=== PATIENT | male | born 1955 | race Caucasian/White ===

== ENCOUNTER 2019-03-29 13:07 | Emergency (ER) | payer MEDICARE, OTHER ==
[2019-03-29 15:32] LABS: #Eosinphils 0.2 thou/uL (0.0-0.7); #Lymphocytes 0.8 thou/uL (1.20-3.40); #Monocytes 0.5 thou/uL (0.11-0.59); #Neutrophils 3.7 thou/uL (1.40-6.50); %Basophils 0.5 % (0.0-1.0); %Lymphocytes 16.1 % (21.0-51.0); %Monocytes 10.1 % (0.0-10.0); %Neutrophils 70.3 % (42.0-75.0); Hemoglobin 14.5 g/dL (14.0-18.0); Mean Corpuscular HGB CONC 33.4 g/dL (32.0-36.0); Mean Corpuscular Hemoglobin 30.7 pg (27.0-31.0); RBC Distribution Width 12.8 % (11.5-14.5); Red Blood Cell (RBC) Count 4.73 mill/uL (4.70-6.10); White Blood Cell (WBC) Count 5.2 thou/uL (4.8-10.8)
[2019-03-29 15:33] LABS: Mean Platelet Volume 7.7 fL (7.4-10.4); Platelet Count 104 thou/uL (130-400)
[2019-03-29 15:40] LABS: Bilirubin Negative (Negative); Blood, Urine Negative (Negative); Clarity CLEAR (Clear); Glucose, Urine (Dipstick) Negative (Negative); Leukocyte Negative (Negative); Nitrite Negative (Negative); Protein, Urine (Dipstick) Negative (Neg-Trace)
[2019-03-29 15:41] LABS: Platelet Morphology Comment Appears Decreased; RBC Morphology Normal
[2019-03-29 15:48] LABS: ALT (SGPT) 87 U/L (8-55); AST (SGOT) 64 U/L (5-34); Albumin 3.9 g/dL (3.4-4.8); Alkaline Phosphatase 99 U/L (40-150); Anion Gap 12 mmol/L (10-20); BUN (Urea Nitrogen) 11 mg/dL (8.4-25.7); Bilirubin, Total 1.3 mg/dL (0.2-1.2); Calc. Creatinine Clearance 0 mL/min (70-130); Calcium 9.1 mg/dL (7.8-10.44); Carbon Dioxide 25 mmol/L (23-31); Chloride 104 mmol/L (98-107); Estimated GFR-MDRD Greater than 90; Globulin 3.1 g/dL (2.4-3.5); Glucose 120 mg/dL (80-115); Potassium 4.2 mmol/L (3.5-5.1); Sodium 137 mmol/L (136-145)
[2019-03-29] MEDS ORDERED: Dexamethasone 4 mg/ml Vial ONE (18:48)
== END 2019-03-29 19:07 | disposition home or self-care (01) ==
LOC: ERS 13:07
DX: M54.41 Lumbago with sciatica, right side (principal); E03.9 Hypothyroidism, unspecified; I10 Essential (primary) hypertension; Z79.899 Other long term (current) drug therapy
CPT/HCPCS: 36415; 80053; 81003; 85025; 85652; 96372; J1100

== ENCOUNTER 2019-11-16 06:21 | Inpatient (IN) | payer MEDICARE, OTHER ==
[2019-11-15 10:01] VITALS: BMI 29.7
[2019-11-16] MEDS ORDERED: Thrombin 5000 UNITS/5 ML VIAL ONE ×2 (06:34→08:33)
[2019-11-16] MEDS ORDERED: SUGAMMADEX SODIUM 200 MG/2 ML VIAL ONE (06:57)
[2019-11-16] MEDS ORDERED: Fentanyl 100 MCG/2 ML VIAL ONE ×5 (07:06→12:12)
[2019-11-16 07:17] LABS: Hemoglobin 13.8 g/dL (14.0-18.0); Mean Corpuscular HGB CONC 34.4 g/dL (32.0-36.0); Mean Corpuscular Volume 87.3 fL (78.0-98.0); Platelet Count 110 thou/uL (130-400); RBC Distribution Width 12.2 % (11.5-14.5); White Blood Cell (WBC) Count 3.7 thou/uL (4.8-10.8)
[2019-11-16 07:26] LABS: Anion Gap 13 mmol/L (10-20); BUN (Urea Nitrogen) 15 mg/dL (8.4-25.7); Calc. Creatinine Clearance 120 mL/min (70-130); Calcium 9.1 mg/dL (7.8-10.44); Carbon Dioxide 26 mmol/L (23-31); Chloride 100 mmol/L (98-107); Estimated GFR-MDRD Greater than 90; Glucose 95 mg/dL (80-115); INR-International Normal Ratio 1.1; PTT 27.1 SEC (22.9-36.1); Potassium 3.7 mmol/L (3.5-5.1); Prothrombin Time 13.7 SEC (12.0-14.7); Sodium 135 mmol/L (136-145)
[2019-11-16] MEDS ORDERED: HYDROmorphone 2 MG/ML VIAL SLOW IVP PRN (09:26)
[2019-11-16] MEDS ORDERED: Ketorolac Tromethamine 30 MG/ML VIAL IVP PRN (09:26)
[2019-11-16] MEDS ORDERED: Promethazine HCl 25 MG/ML VIAL SLOW IVP PRN (09:26)
[2019-11-16] MEDS ORDERED: Ondansetron HCl/PF 4 MG/2 ML Vial IVP PRN (09:26)
[2019-11-16] MEDS ORDERED: Meperidine HCl/PF 25 MG/ML VIAL SLOW IVP PRN (09:26)
[2019-11-16] MEDS ORDERED: PROPOFOL 200 MG/20 ML VIAL ONE (09:51)
[2019-11-16] MEDS ORDERED: Rocuronium Bromide 10 MG/ML (10ML VIAL) ONE (09:51)
[2019-11-16] MEDS ORDERED: Succinylcholine Chloride 20 MG/ML 10 ml SYRINGE FS ONE (09:51)
[2019-11-16] MEDS ORDERED: Ondansetron PF 4 MG/2 ML Vial ONE (09:51)
[2019-11-16] MEDS ORDERED: Dexamethasone 20 MG/5 ML VIAL ONE (09:51)
[2019-11-16] MEDS ORDERED: Lidocaine 1% PF 5 ML VIAL ONE (09:51)
[2019-11-16] MEDS ORDERED: Fleet Enema 133 ML BOT PR PRN (11:00)
[2019-11-16] MEDS ORDERED: Acetaminophen 325 MG TAB PO PRN (11:00)
[2019-11-16] MEDS ORDERED: traMADol HCl 50 MG TAB PO PRN (11:00)
[2019-11-16] MEDS ORDERED: Ondansetron PF 4 MG/2 ML Vial IVP PRN (11:00)
[2019-11-16] MEDS ORDERED: Mag-Al 1200 mg/1200 mg/30 ML UDCUP PO PRN (11:00)
[2019-11-16] MEDS ORDERED: Bisacodyl 10 MG SUPP PR PRN (11:00)
[2019-11-16] MEDS ORDERED: Milk Of Magnesia 30 ML UDCUP PO PRN (11:00)
[2019-11-16] MEDS ORDERED: HYDROmorphone 2 MG/ML VIAL ONE (11:33)
[2019-11-16] MEDS ORDERED: Ketorolac Tromethamine 30 MG/ML VIAL ONE (12:09)
[2019-11-16] MEDS: Sodium Chloride 0.9% 1,000 ML IV SCH (13:15)
[2019-11-16] MEDS: Morphine 2 MG/ML SYRINGE SLOW IVP PRN (14:37)
--- NOTE | 2019-11-16 15:16 | OP ---
DATE OF PROCEDURE: 11/16/2019 LOCATION: OR 12. TOOLMAN: Lynne Weiner PA-C. PREPROCEDURE DIAGNOSES: 1. Multilevel lumbar stenosis. 2. Low back and leg pain. 3. Lumbar synovial cyst. POSTPROCEDURE DIAGNOSES: 1. Multilevel lumbar stenosis. 2. Low back and leg pain. 3. Lumbar synovial cyst. PROCEDURES PERFORMED: 1. L2-L3, L3-L4, and L5-S1 laminectomies, partial facetectomies, and foraminotomies. 2. L4-L5 synovial cyst resection. DESCRIPTION OF PROCEDURE: After informed consent was obtained from the patient, the patient was brought to the OR. Proper patient, pause, and identification were carried out. He was placed under excellent endotracheal anesthesia and positioned prone on the OR table. All appropriate points were padded. We identified the L2, L3, L4, L5, and S1 dorsal spines and lamina. A linear deepak was made over this region. This area was sterilely cleansed, prepared, and draped. Proper patient, pause, and identification were carried out. The wound was then opened with a combination of sharp, monopolar, and blunt dissection. L2, L3, L4, L5, and S1 dorsal spines and lamina were exposed. Localization film confirmed our area of interest. We then performed L2-L3 and L3-L4 laminectomies, partial facetectomies, and foraminotomies with an L5-S1 laminectomy, partial facetectomy, and foraminotomy. We then performed L4-L5 synovial cyst resection with excellent decompression in the common dural tube in the L2, L3, L4, L5, and S1 nerve roots. Copious irrigation occurred throughout as did maximizing hemostasis. The wound was then closed in anatomic layers following sprinkling of vancomycin powder. The patient emerged from anesthesia. Job ID: [id number]
--- NOTE | 2019-11-16 15:18 | EKG ---
Test Reason : PREOP Blood Pressure : / mmHG Vent. Rate : 063 BPM Atrial Rate : 063 BPM P-R Int : 146 ms QRS Dur : 092 ms QT Int : 446 ms P-R-T Axes : 024 -28 001 degrees QTc Int : 456 ms Normal sinus rhythm Normal ECG Confirmed by AMNA SEGURA ([id number]) on 11/16/2019 3:17:51 PM Referred By: AARTI Confirmed By:AMNA SEGURA
[2019-11-16] MEDS: CEFAZOLIN 2 GM in Premix Bag 1 BAG IVPB SCH ×2 (15:33→23:19)
[2019-11-16] MEDS: Acetaminophen/Codeine 30-300mg Tablet PO PRN ×2 (15:38→20:55)
[2019-11-16] MEDS: Propranolol 10 MG TAB PO SCH (20:54)
[2019-11-16] MEDS: tiZANidine HCl 4 MG TAB PO PRN (20:54)
[2019-11-16] MEDS ORDERED: Zolpidem Tartrate 5 MG TAB PO PRN (21:00)
[2019-11-16] MEDS: HYDROcodone/Acetaminophen 7.5/325 mg Tablet PO PRN (23:18)
[2019-11-17] MEDS: tiZANidine HCl 4 MG TAB PO PRN ×2 (05:31→14:39)
[2019-11-17] MEDS: HYDROcodone/Acetaminophen 7.5/325 mg Tablet PO PRN ×4 (05:31→18:21)
[2019-11-17] MEDS: Sodium Chloride 0.9% 1,000 ML IV SCH ×2 (05:32→12:22)
[2019-11-17 05:40] LABS: #Lymphocytes 0.9 thou/uL (1.20-3.40); #Monocytes 0.9 thou/uL (0.11-0.59); #Neutrophils 6.1 thou/uL (1.40-6.50); %Eosinophils 0.1 % (0.0-10.0); %Lymphocytes 11.4 % (21.0-51.0); %Monocytes 11.5 % (0.0-10.0); %Neutrophils 76.9 % (42.0-75.0); Mean Corpuscular HGB CONC 32.7 g/dL (32.0-36.0); Mean Corpuscular Hemoglobin 28.9 pg (27.0-31.0); Mean Corpuscular Volume 88.4 fL (78.0-98.0); Mean Platelet Volume 8.4 fL (7.4-10.4); Platelet Count 108 thou/uL (130-400); RBC Distribution Width 12.1 % (11.5-14.5); Red Blood Cell (RBC) Count 3.82 mill/uL (4.70-6.10); White Blood Cell (WBC) Count 7.9 thou/uL (4.8-10.8)
[2019-11-17] MEDS ORDERED: Levothyroxine Sodium 100 MCG TAB PO SCH (06:00)
[2019-11-17] MEDS ORDERED: Spironolactone 25 MG TAB PO SCH (08:00)
[2019-11-17] MEDS: Propranolol 10 MG TAB PO SCH (08:12)
[2019-11-17] MEDS ORDERED: Furosemide 20 MG TAB PO SCH (09:00)
[2019-11-17] MEDS ORDERED: Non-Formulary Item 1 EACH (Celecoxib [Celebrex] 200 MG) PO SCH (09:00)
[2019-11-17] MEDS: Morphine 2 MG/ML SYRINGE SLOW IVP PRN (11:41)
[2019-11-17 16:34] VITALS: BP 117/76; TEMP 98.2
--- NOTE | 2019-11-17 17:31 | PRG ---
DATE OF SERVICE: 11/17/2019 SUBJECTIVE: Mr. Romero is doing well postoperative day 1 from lumbar decompression. He has had resolution in his leg pain and is mobilizing. I am very pleased with how he is doing. We went over do's and don'ts in the postoperative period likely be dismissed. Job ID: [id number]
== END 2019-11-17 20:32 | DRG 517 ==
LOC: SURG A 06:21 → SURG B 12:59
PROVIDERS: ADMIT Surgery; ATTEND Surgery
PROC: 01NB0ZZ Release Lumbar Nerve, Open Approach (ICD-10-PCS; principal; 2019-11-16)
PROC: 01NR0ZZ Release Sacral Nerve, Open Approach (ICD-10-PCS; 2019-11-16)
DX: M48.061 Spinal stenosis, lumbar region without neurogenic claudication (principal); M54.16 Radiculopathy, lumbar region; I10 Essential (primary) hypertension; E78.5 Hyperlipidemia, unspecified; G47.00 Insomnia, unspecified; E03.9 Hypothyroidism, unspecified; E66.9 Obesity, unspecified; M71.38 Other bursal cyst, other site; Z68.29 Body mass index [BMI] 29.0-29.9, adult; M48.07 Spinal stenosis, lumbosacral region
CPT/HCPCS: 36415; 76000; 80048; 85025; 85027; 85610; 85730; 86850; 86900; 86901; 93005; 93010; J0690; J1100; J1170; J1885; J2001; J2270; J2405; J2704; J3010; J3370; J3490

== ENCOUNTER 2020-07-07 06:46 | Outpatient (CLI) | payer MEDICARE, OTHER ==
[2020-07-07 10:16] LABS: INR-International Normal Ratio 0.9; Prothrombin Time 12.8 sec (12.0-14.7)
[2020-07-07 10:37] LABS: Anion Gap 15 mmol/L (10-20); BUN (Urea Nitrogen) 14 mg/dL (8.4-25.7); Calc. Creatinine Clearance 0 mL/min (70-130); Calcium 9.1 mg/dL (7.8-10.44); Carbon Dioxide 23 mmol/L (23-31); Chloride 103 mmol/L (98-107); Estimated GFR-MDRD 90; Glucose 241 mg/dL (80-115); Sodium 137 mmol/L (136-145)
[2020-07-07 11:07] LABS: #Eosinphils 0.2 thou/uL (0.0-0.7); #Lymphocytes 1.1 thou/uL (1.20-3.40); #Monocytes 0.5 thou/uL (0.11-0.59); #Neutrophils 2.4 thou/uL (1.40-6.50); %Basophils 0.8 % (0.0-1.0); %Eosinophils 5.3 % (0.0-10.0); %Lymphocytes 24.9 % (21.0-51.0); %Monocytes 11.5 % (0.0-10.0); %Neutrophils 57.6 % (42.0-75.0); Hemoglobin 13.6 g/dL (14.0-18.0); Mean Corpuscular HGB CONC 33.6 g/dL (32.0-36.0); Mean Corpuscular Hemoglobin 28.9 pg (27.0-31.0); Mean Corpuscular Volume 86.1 fL (78.0-98.0); Mean Platelet Volume 8.3 fL (7.4-10.4); Platelet Count 107 thou/uL (130-400); Platelet Morphology Comment Appears Decreased; RBC Distribution Width 14.9 % (11.5-14.5); RBC Morphology Normal; White Blood Cell (WBC) Count 4.2 thou/uL (4.8-10.8)
[2020-07-07 11:23] LABS: MDiff Complete? YES
[2020-07-07 18:15] LABS: SARS-CoV-2 MS2 Positive; SARS-CoV-2 N Gene Negative; SARS-CoV-2 S Gene Negative; SARS-CoV-2 by NAA Not Detected (NotDetected); SARS-CoV-2 orf1ab Negative
--- NOTE | 2020-07-10 17:21 | EKG ---
Test Reason : Blood Pressure : / mmHG Vent. Rate : 063 BPM Atrial Rate : 063 BPM P-R Int : 148 ms QRS Dur : 094 ms QT Int : 418 ms P-R-T Axes : 044 -19 044 degrees QTc Int : 427 ms Normal sinus rhythm Low voltage QRS Borderline ECG Confirmed by DR. Naren BLACK ([id number]) on 07/10/2020 5:21:02 PM Referred By: AARTI Confirmed By:DR. Naren BLACK
== END 2020-07-07 06:47 | disposition home or self-care (01) ==
LOC: LABBT 06:46
PROVIDERS: ATTEND Surgery
DX: Z01.818 Encounter for other preprocedural examination (principal); M51.16 Intervertebral disc disorders with radiculopathy, lumbar region; M48.062 Spinal stenosis, lumbar region with neurogenic claudication; Z20.828 Contact with and (suspected) exposure to other viral communicable diseases
CPT/HCPCS: 80048; 85025; 85610; 85730; 93005; U0003; 87635; 93010

== ENCOUNTER 2020-07-11 06:07 | Day surgery (SDC) | payer MEDICARE, OTHER ==
[2020-07-11] MEDS ORDERED: Thrombin 5000 UNITS/5 ML VIAL ONE (06:32)
[2020-07-11] MEDS ORDERED: Fentanyl 100 MCG/2 ML VIAL ONE ×3 (07:10→10:15)
[2020-07-11] MEDS ORDERED: Midazolam HCl 2 mg/2 ml Vial ONE (07:30)
[2020-07-11] MEDS ORDERED: EPHEDRINE 25 MG/5 ML SYRINGE ONE (09:26)
[2020-07-11] MEDS ORDERED: Dexamethasone 20 MG/5 ML VIAL ONE (09:26)
[2020-07-11] MEDS ORDERED: diphenhydrAMINE 50 MG/ML VIAL ONE (09:26)
[2020-07-11] MEDS ORDERED: Glycopyrrolate 0.2 MG/ML 5 ML SYRINGE ONE (09:26)
[2020-07-11] MEDS ORDERED: Ondansetron PF 4 MG/2 ML Vial ONE (09:26)
[2020-07-11] MEDS ORDERED: Ketorolac Tromethamine 30 MG/ML VIAL ONE (09:26)
[2020-07-11] MEDS ORDERED: Rocuronium Bromide 10 MG/ML (10ML VIAL) ONE (09:26)
[2020-07-11] MEDS ORDERED: PROPOFOL 200 MG/20 ML VIAL ONE (09:26)
[2020-07-11] MEDS ORDERED: Meperidine HCl/PF 25 MG/ML VIAL SLOW IVP PRN (10:02)
[2020-07-11] MEDS ORDERED: Fleet Enema 133 ML BOT PR PRN (10:02)
[2020-07-11] MEDS ORDERED: Acetaminophen/Codeine 30-300mg Tablet PO PRN (10:02)
[2020-07-11] MEDS ORDERED: PACU-Morphine 4MG/ML VIAL SLOW IVP PRN (10:02)
[2020-07-11] MEDS ORDERED: HYDROmorphone 2 MG/ML VIAL SLOW IVP PRN (10:02)
[2020-07-11] MEDS ORDERED: Acetaminophen 325 MG TAB PO PRN (10:02)
[2020-07-11] MEDS ORDERED: diphenhydrAMINE 25 MG CAP PO PRN (10:02)
[2020-07-11] MEDS ORDERED: Morphine Sulfate 2 MG/ML SYRINGE SLOW IVP PRN (10:02)
[2020-07-11] MEDS ORDERED: Promethazine HCl 25 MG/ML VIAL SLOW IVP PRN (10:02)
[2020-07-11] MEDS ORDERED: Morphine 2 MG/ML VIAL SLOW IVP PRN (10:02)
[2020-07-11] MEDS ORDERED: Mag-Al 1200 mg/1200 mg/30 ML UDCUP PO PRN (10:02)
[2020-07-11] MEDS ORDERED: Ondansetron HCl/PF 4 MG/2 ML Vial IVP PRN (10:02)
[2020-07-11] MEDS ORDERED: Bisacodyl 10 MG SUPP PR PRN (10:02)
[2020-07-11] MEDS ORDERED: Promethazine HCl 25 MG/ML VIAL IM PRN ×2 (10:02)
[2020-07-11] MEDS ORDERED: Ondansetron PF 4 MG/2 ML Vial IVP PRN (10:02)
[2020-07-11] MEDS ORDERED: Milk Of Magnesia 30 ML UDCUP PO PRN (10:02)
[2020-07-11] MEDS ORDERED: traMADol HCl 50 MG TAB PO PRN (10:02)
--- NOTE | 2020-07-11 10:07 | OP ---
DATE OF PROCEDURE: 07/11/2020 [employer] MANAGER: Lynne Weiner PA-C PREPROCEDURE DIAGNOSES: Right L5 foraminal and far lateral stenosis with disk extrusion, degenerative disk disease, and facet hypertrophy. POSTPROCEDURE DIAGNOSES: Right L5 foraminal and far lateral stenosis with disk extrusion, degenerative disk disease, and facet hypertrophy. PROCEDURES PERFORMED: 1. Right L5-S1 trans-facet diskectomy with partial pediculectomy of the right L5 segment to completely open the right L5 foramen laterally and far-laterally. 2. Use of operating microscope for microdissection. DESCRIPTION OF PROCEDURE: After informed consent was obtained from the patient, the patient was brought to the OR. Proper patient, pause, and identification were carried out. He was placed under excellent general endotracheal anesthesia and positioned prone on the OR table. All appropriate points were padded. We identified landmarks allow for approach to the L5-S1 right-sided segments. This region was sterilely cleansed, prepared, and draped. Proper patient, pause, and identification were carried out. The right L5-S1 segment was then exposed. Microscope was brought and localization film confirmed our area of interest. We then performed a lateral and far-lateral diskectomy at the right L5-S1 segment with partial pediculectomy to completely decompress the exiting right L5 nerve root. Copious irrigation occurred throughout as did maximizing hemostasis. The wound was closed in anatomic layers following sprinkling of vancomycin powder. The patient emerged from anesthesia. Job ID: [id number] [facility]
[2020-07-11] MEDS: CEFAZOLIN 2 GM in Premix Bag 1 BAG IVPB SCH ×2 (13:50→21:15)
[2020-07-11] MEDS: HYDROcodone/Acetaminophen 7.5/325 mg Tablet PO PRN ×2 (13:50→18:24)
[2020-07-11] MEDS: Sodium Chloride 0.9% 1,000 ML IV SCH (13:52)
[2020-07-11] MEDS: Gabapentin 300 MG CAP PO SCH ×2 (16:07→21:07)
[2020-07-11] MEDS: tiZANidine HCl 4 MG TAB PO PRN (21:07)
[2020-07-11] MEDS: Propranolol 10 MG TAB PO SCH (21:22)
[2020-07-12] MEDS: HYDROcodone/Acetaminophen 7.5/325 mg Tablet PO PRN ×3 (01:33→11:27)
[2020-07-12] MEDS: Sodium Chloride 0.9% 1,000 ML IV SCH (04:13)
[2020-07-12] MEDS: tiZANidine HCl 4 MG TAB PO PRN (05:31)
[2020-07-12] MEDS ORDERED: Levothyroxine Sodium 100 MCG TAB PO SCH (06:00)
[2020-07-12] MEDS ORDERED: Spironolactone 25 MG TAB PO SCH (08:00)
[2020-07-12] MEDS: Gabapentin 300 MG CAP PO SCH (09:05)
[2020-07-12] MEDS: Propranolol 10 MG TAB PO SCH (09:05)
[2020-07-12 11:53] VITALS: BP 126/75; TEMP 97.5
--- NOTE | 2020-07-12 13:51 | PRG ---
DATE OF SERVICE: 07/12/2020 Mr. Romero is postoperative day 1 from right trans-facet diskectomy, decompress the right L5 nerve root. His right leg pain has resolved. He is doing very well with good strength. We will plan for discharge. Job ID: [id number]
== END 2020-07-12 11:59 | disposition home or self-care (01) ==
LOC: SDC 06:07 → SURG A 10:02 → SDC 07-12 11:59
PROVIDERS: ATTEND Surgery
PROC: 0SB20ZZ Excision of Lumbar Vertebral Disc, Open Approach (ICD-10-PCS; principal; 2020-07-11)
DX: M48.062 Spinal stenosis, lumbar region with neurogenic claudication (principal); M43.16 Spondylolisthesis, lumbar region; M51.16 Intervertebral disc disorders with radiculopathy, lumbar region; Z79.82 Long term (current) use of aspirin; Z79.899 Other long term (current) drug therapy
CPT/HCPCS: 63056; 76000; 82962; J2270; 36416; J0690; J1100; J1200; J1885; J2250; J2405; J2704; J3010; J3370